=== PATIENT | male | born 1980 | race Caucasian/White ===

== ENCOUNTER → 2016-10-30 10:24 | Outpatient (CLI) | payer OTHER | END | disposition home or self-care (01) | LOC: D.CT 10:24 | DX: R51 Headache (principal) ==

== ENCOUNTER 2017-04-03 14:19 | Emergency (ER) | payer OTHER | END 2017-04-03 15:47 | disposition home or self-care (01) | LOC: D.ER 14:19 | DX: L02.611 Cutaneous abscess of right foot (principal); F41.9 Anxiety disorder, unspecified; F17.200 Nicotine dependence, unspecified, uncomplicated ==